=== PATIENT | female | born 1970 | race Caucasian/White ===

== ENCOUNTER → 2019-02-26 | Outpatient (CLI) | payer MEDICAID ==
[~2019-02-26] MED LIST: LISINOPRIL20 MG PO; NORCO 325 MG-7.1 TAB PO; PRISTIQ50 M1 PO; TRIPHASIL-281 TAB PO; ZOCOR20 MG PO
== END ==
LOC: COL.CARD 02-18 10:00
DX: M62.838 Other muscle spasm (principal); M79.601 Pain in right arm